=== PATIENT | male | born 1995 | race Caucasian/White ===

== ENCOUNTER 2017-09-05 17:18 | Emergency (ER) | payer BC ==
--- NOTE | 2017-09-05 17:32 | ER Report ---
History and Physical Time Seen By MD: 17:32 Hx. of Stated Complaint: Per patient's father he is acting suicidal and throwing things through the window at home, Patient states he took about 7 pills of his clonidine to help him sleep HPI/ROS CHIEF COMPLAINT: Suicidal ideation HISTORY OF PRESENT ILLNESS: 21-year-old male patient presents to emergency room with complaint of suicidal ideation. Patient states that he had an argument with his father this afternoon. He states that his father told him that he didn' t expect much out of him. He states that hurt his feelings quite a bit. He states that he does have some mental problems mostly with a frontal lobe dysfunction, patient also has difficulty with expressing himself. Patient denies having any nausea or vomiting. Patient states that he did tell his father that he just wanted to and that he wanted his father to kill him. Patient states that was not what he intended to say. He states he does not have any plans. He states he has been suicidal in the past but was never able to formulate a plan. He states that he did take 7 clonidine to help with sleep. He states that he is done in the past and knows that there is not any harm in doing that. He states that he is prescribed one clonidine at bedtime. REVIEW OF SYSTEMS: Respiratory: No cough, no dyspnea. Cardiovascular: No chest pain, no palpitations. Gastrointestinal: No vomiting, no abdominal pain. Musculoskeletal: No back pain. Allergies: Coded Allergies: No Known Drug Allergies (Unverified , 09/05/17) Home Meds Reported Medications Alprazolam (ALPRAZOLAM) 1 Mg Tablet, 1 TAB PO TID Y for ANXIETY, #3 TAB 09/05/17 Fluoxetine Hcl (FLUOXETINE HCL) 20 Mg Capsule, 20 MG PO QDAY, CAPSULE 09/05/17 Clonidine HCl (Clonidine HCl ER) 0.1 Mg Tab.er.12h, 1 TAB PO QHS 09/05/17 Olanzapine (OLANZAPINE) 2.5 Mg Tablet, 2.5 MG PO QDAY 09/05/17 Past Medical/Surgical History Patient has a past medical history of IBS, marijuana use, alcohol use, suicide attempt. Patient has a surgical history of bladder expansion. Reviewed Nurses Notes: Yes Hx Substance Use Disorder: Yes (sometimes marijauna) Hx Alcohol Use: Yes (twice a week) Constitutional Vital Sign - Last 24 Hours 09/05/17 09/05/17 09/05/17 09/05/17 17:24 17:30 17:45 18:00 Temp 98.6 Pulse 97 89 80 78 Resp 16 B/P (MAP) 142/91 Pulse Ox 96 95 96 96 O2 Delivery Room Air 09/05/17 09/05/17 09/05/17 18:30 19:00 19:39 Pulse 77 70 60 Resp 16 B/P (MAP) 106/64 (78) Pulse Ox 96 95 92 O2 Delivery Room Air Physical Exam General Appearance: The patient is alert, has no immediate need for airway protection and no current signs of toxicity. ENT: Tympanic membranes are pearly-la, auditory canals are patent, mucous membranes are moist. Respiratory: Chest is non tender, lungs are clear to auscultation. Cardiac: regular rate and rhythm Gastrointestinal: Abdomen is soft and non tender, no masses, bowel sounds normal. Musculoskeletal: Neck: Neck is supple and non tender. Extremities have full range of motion and are non tender. Skin: No rashes or lesions. Psych: Patient is unable to maintain eye contact during the interview. Patient does have very halting speech. DIFFERENTIAL DIAGNOSIS: After history and physical exam differential diagnosis was considered for depression, suicidal ideation. Medical Decision Making Data Points Result Diagram: 09/05/17180809/05/171808 Laboratory Hematology Test 09/05/17 18:09 09/05/17 19:03 Red Blood Count 5.37 M/uL (4.00-5.60) Mean Corpuscular Volume 91.0 fL (80.0-96.0) Mean Corpuscular Hemoglobin 31.0 pg (26.0-33.0) Mean Corpuscular Hemoglobin Concent 34.1 g/dL (32.0-36.0) Red Cell Distribution Width 13.1 % (11.5-14.5) Mean Platelet Volume 8.2 fL (7.2-11.1) Neutrophils (%) (Auto) 69.1 % (39.4-72.5) Lymphocytes (%) (Auto) 19.0 % (17.6-49.6) Monocytes (%) (Auto) 8.1 % (4.1-12.4) Eosinophils (%) (Auto) 3.2 % (0.4-6.7) Basophils (%) (Auto) 0.6 % (0.3-1.4) Nucleated RBC Relative Count (auto) 0.0 /100WBC Neutrophils # (Auto) 4.8 K/uL (2.0-7.4) Lymphocytes # (Auto) 1.3 K/uL (1.3-3.6) Monocytes # (Auto) 0.6 K/uL (0.3-1.0) Eosinophils # (Auto) 0.2 K/uL (0.0-0.5) Basophils # (Auto) 0.0 K/uL (0.0-0.1) Nucleated RBC Absolute Count (auto) 0.00 K/uL Sodium Level 140 mmol/L (137-145) Potassium Level 3.9 mmol/L (3.5-5.0) Chloride Level 102 mmol/L (98-107) Carbon Dioxide Level 23 mmol/L (22-30) Blood Urea Nitrogen 12 mg/dl (9-21) Creatinine 0.90 mg/dl (0.66-1.25) Glomerular Filtration Rate Calc > 60.0 Random Glucose 86 mg/dl (75-110) Calcium Level 9.3 mg/dl (8.4-10.2) Magnesium Level 1.7 mg/dl (1.7-2.2) Total Bilirubin 0.5 mg/dl (0.2-1.3) Aspartate Amino Transf (AST/SGOT) 55 U/L (0-35) Alanine Aminotransferase (ALT/SGPT) 92 U/L (0-56) Alkaline Phosphatase 120 U/L (0-126) Total Protein 7.9 gm/dl (6.3-8.2) Albumin 4.4 g/dl (3.5-5.0) Salicylates Level < 10 mg/L Salicylate Last Dose Date unk Acetaminophen Level < 10 ug/ml Serum Alcohol < 10 mg/dl Urine Color Yellow Urine Clarity Clear Urine pH 7.0 pH (4.8-9.5) Urine Specific [place] 1.008 Urine Protein Negative mg/dL (NEGATIVE) Urine Glucose (UA) Negative mg/dL (NEGATIVE) Urine Ketones Negative mg/dL (NEGATIVE) Urine Blood Negative (NEGATIVE) Urine Nitrite Negative (NEGATIVE) Urine Bilirubin Negative (NEGATIVE) Urine Urobilinogen Negative mg/dL (0.2-1.9) Urine Leukocyte Esterase Negative (NEGATIVE) Urine RBC <1 /HPF (0-2/HPF) Urine WBC <1 /HPF (0-5/HPF) Urine Squamous Epithelial Cells Few /LPF (</=FEW) Urine Bacteria Negative /HPF (NONE-FEW) Urine Hyaline Casts Few /LPF (NONE-FEW) Urine Mucus Few /HPF (NONE-FEW) Urine Opiates Screen Negative Urine Barbiturates Screen Negative Ur Tricyclic Antidepressants Screen Negative Urine Phencyclidine Screen Negative Urine Amphetamines Screen Negative Urine Benzodiazepines Screen Negative Urine Cocaine Screen Negative Urine Cannabinoids Screen Positive Chemistry Test 09/05/17 18:09 09/05/17 19:03 White Blood Count 6.9 k/uL (4.5-11.0) Red Blood Count 5.37 M/uL (4.00-5.60) Hemoglobin 16.7 g/dL (14.0-18.0) Hematocrit 48.9 % (42.0-52.0) Mean Corpuscular Volume 91.0 fL (80.0-96.0) Mean Corpuscular Hemoglobin 31.0 pg (26.0-33.0) Mean Corpuscular Hemoglobin Concent 34.1 g/dL (32.0-36.0) Red Cell Distribution Width 13.1 % (11.5-14.5) Platelet Count 188 K/uL (150-450) Mean Platelet Volume 8.2 fL (7.2-11.1) Neutrophils (%) (Auto) 69.1 % (39.4-72.5) Lymphocytes (%) (Auto) 19.0 % (17.6-49.6) Monocytes (%) (Auto) 8.1 % (4.1-12.4) Eosinophils (%) (Auto) 3.2 % (0.4-6.7) Basophils (%) (Auto) 0.6 % (0.3-1.4) Nucleated RBC Relative Count (auto) 0.0 /100WBC Neutrophils # (Auto) 4.8 K/uL (2.0-7.4) Lymphocytes # (Auto) 1.3 K/uL (1.3-3.6) Monocytes # (Auto) 0.6 K/uL (0.3-1.0) Eosinophils # (Auto) 0.2 K/uL (0.0-0.5) Basophils # (Auto) 0.0 K/uL (0.0-0.1) Nucleated RBC Absolute Count (auto) 0.00 K/uL Glomerular Filtration Rate Calc > 60.0 Calcium Level 9.3 mg/dl (8.4-10.2) Magnesium Level 1.7 mg/dl (1.7-2.2) Total Bilirubin 0.5 mg/dl (0.2-1.3) Aspartate Amino Transf (AST/SGOT) 55 U/L (0-35) Alanine Aminotransferase (ALT/SGPT) 92 U/L (0-56) Alkaline Phosphatase 120 U/L (0-126) Total Protein 7.9 gm/dl (6.3-8.2) Albumin 4.4 g/dl (3.5-5.0) Salicylates Level < 10 mg/L Salicylate Last Dose Date unk Acetaminophen Level < 10 ug/ml Serum Alcohol < 10 mg/dl Urine Color Yellow Urine Clarity Clear Urine pH 7.0 pH (4.8-9.5) Urine Specific [place] 1.008 Urine Protein Negative mg/dL (NEGATIVE) Urine Glucose (UA) Negative mg/dL (NEGATIVE) Urine Ketones Negative mg/dL (NEGATIVE) Urine Blood Negative (NEGATIVE) Urine Nitrite Negative (NEGATIVE) Urine Bilirubin Negative (NEGATIVE) Urine Urobilinogen Negative mg/dL (0.2-1.9) Urine Leukocyte Esterase Negative (NEGATIVE) Urine RBC <1 /HPF (0-2/HPF) Urine WBC <1 /HPF (0-5/HPF) Urine Squamous Epithelial Cells Few /LPF (</=FEW) Urine Bacteria Negative /HPF (NONE-FEW) Urine Hyaline Casts Few /LPF (NONE-FEW) Urine Mucus Few /HPF (NONE-FEW) Urine Opiates Screen Negative Urine Barbiturates Screen Negative Ur Tricyclic Antidepressants Screen Negative Urine Phencyclidine Screen Negative Urine Amphetamines Screen Negative Urine Benzodiazepines Screen Negative Urine Cocaine Screen Negative Urine Cannabinoids Screen Positive Toxicology Test 09/05/17 18:09 09/05/17 19:03 Salicylates Level < 10 mg/L Salicylate Last Dose Date unk Acetaminophen Level < 10 ug/ml Serum Alcohol < 10 mg/dl Urine Opiates Screen Negative Urine Barbiturates Screen Negative Ur Tricyclic Antidepressants Screen Negative Urine Phencyclidine Screen Negative Urine Amphetamines Screen Negative Urine Benzodiazepines Screen Negative Urine Cocaine Screen Negative Urine Cannabinoids Screen Positive Urinalysis Test 09/05/17 19:03 Urine Color Yellow Urine Clarity Clear Urine pH 7.0 pH (4.8-9.5) Urine Specific [place] 1.008 Urine Protein Negative mg/dL (NEGATIVE) Urine Glucose (UA) Negative mg/dL (NEGATIVE) Urine Ketones Negative mg/dL (NEGATIVE) Urine Blood Negative (NEGATIVE) Urine Nitrite Negative (NEGATIVE) Urine Bilirubin Negative (NEGATIVE) Urine Urobilinogen Negative mg/dL (0.2-1.9) Urine Leukocyte Esterase Negative (NEGATIVE) Urine RBC <1 /HPF (0-2/HPF) Urine WBC <1 /HPF (0-5/HPF) Urine Squamous Epithelial Cells Few /LPF (</=FEW) Urine Bacteria Negative /HPF (NONE-FEW) Urine Hyaline Casts Few /LPF (NONE-FEW) Urine Mucus Few /HPF (NONE-FEW) ED Course/Re-evaluation ED Course Patient was admitted to exam room, history and physical were obtained. Differential diagnoses were considered. On examination patient does seem impaired swelling, is not able to maintain eye contact. Speech is very halting. Patient did state that he would like to be admitted to a full health as he is not having suicidal thoughts this time but did state that he would like to be earlier this evening. The lab work for a behavioral health admission was done. Labs were unremarkable except the patient did have a positive drug screen for cannabis. I discussed the case with Daniela Farmer, psychological help this practitioner. She did agree to accept the patient for admission to behavioral health unit. Decision to Disposition Date: Sep 05, 2017 Decision to Disposition Time: 19:31 Depart Departure Latest Vital Signs Vital Signs Date Time Temp Pulse Resp B/P (MAP) Pulse Ox O2 Delivery O2 Flow Rate FiO2 09/05/17 19:39 60 16 106/64 (78) 92 Room Air 09/05/17 17:24 98.6 Impression: Primary Impression: Depression Additional Impression: Suicidal thoughts Condition: Condition Unchanged Disposition: XFER TO [facility] Problem Qualifiers Primary Impression: Depression Depression Type: major depressive disorder Major depression recurrence: recurrent Active/Remission status: currently active Major depression episode severity: moderate Qualified Codes: F33.1 - Major depressive disorder, recurrent, moderate HOLLY SOSA Sep 05, 2017 17:32
[2017-09-05] MEDS ORDERED: FLUO-177 PO (17:33)
[2017-09-05] MEDS ORDERED: CLON0.1T14 PO (17:33)
[2017-09-05] MEDS ORDERED: OLAN2.5T3 PO (17:33)
[2017-09-05] MEDS ORDERED: ALPR-451 PO (17:33)
[2017-09-05 18:23] LABS: PLATELET COUNT, AUTOMATED 188 K/uL (150-450)
[2017-09-05 19:39] VITALS: BP 106/64
[2017-09-06] MEDS ORDERED: MINO75CA2 PO (11:34)
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
== END 2017-09-05 19:50 ==
LOC: ER 17:35
DX: F33.1 Major depressive disorder, recurrent, moderate (principal); R45.851 Suicidal ideations; F43.24 Adjustment disorder with disturbance of conduct; F41.1 Generalized anxiety disorder; F89 Unspecified disorder of psychological development; Z60.4 Social exclusion and rejection; F12.10 Cannabis abuse, uncomplicated
CPT/HCPCS: 36415; 80305; 80320; 80329; 81001; 82040; 82247; 82310; 82374; 82435; 82565; 82947; 83735; 84075; 84132; 84155; 84295; 84443; 84450; 84460; 84520; 85025; 99285

== ENCOUNTER 2017-09-05 19:34 | Inpatient (IN) | payer BC ==
[~2017-09-05] VITALS: Ht 175.3 cm; Wt 79.4 kg
[~2017-09-05 19:34] MED LIST: ALPR-451 PO; CLON0.1T14 PO; FLUO-177 PO; OLAN2.5T3 PO
[2017-09-05] MEDS ORDERED: ACETAMINOPHEN 325 MG TAB PO PRN (20:05)
[2017-09-05] MEDS ORDERED: MAG HYD/AL HYD/SIMETH 30ML UDC PO PRN (20:20)
[2017-09-05 20:26] VITALS: BP 90/60
[2017-09-05 21:49] VITALS: BP_SYST 102; BP_SYST 105; BP_DIAS 66
[2017-09-05] MEDS: OLANZapine 5 MG TAB PO SCH (22:06)
[2017-09-06 00:03] VITALS: BP 101/57
[2017-09-06] MEDS ORDERED: MULTIVITAMINS TAB PO SCH (09:00)
[2017-09-06] MEDS ORDERED: FLUoxetine HCL 20 MG CAP PO SCH (09:00)
[2017-09-06] MEDS: FLUoxetine HCL 20 MG CAP PO SCH (10:57)
[2017-09-06] MEDS ORDERED: MINO75CA2 PO (11:34)
[2017-09-06] MEDS ORDERED: ALPRAZolam 0.5 MG TAB PO PRN (12:00)
[2017-09-06 13:44] VITALS: BP 119/69
[2017-09-06] MEDS ORDERED: cloNIDine HCL 0.1 MG TAB PO SCH (21:00)
[2017-09-06] MEDS: OLANZapine 5 MG TAB PO SCH (21:06)
[2017-09-06] MEDS: MINOCYCLINE HCL 100 MG CAP PO SCH (21:06)
[2017-09-06 21:21] VITALS: BP 126/84
[2017-09-07 05:45] VITALS: BP 104/59
[2017-09-07] MEDS: MINOCYCLINE HCL 100 MG CAP PO SCH (08:04)
[2017-09-07] MEDS: FLUoxetine HCL 20 MG CAP PO SCH (08:05)
[2017-09-07] MEDS ORDERED: OMEGA-3 500 MG CAP PO SCH (09:00)
[2017-09-07] MEDS ORDERED: CHOLECALCIFEROL 1000 UNIT TAB PO SCH (09:00)
[2017-09-07] MEDS ORDERED: FLUoxetine HCL 20 MG CAP PO SCH (09:00)
[2017-09-07] MEDS ORDERED: MULT-1379 PO (09:35)
[2017-09-07] MEDS ORDERED: OMEG-23 PO (09:54)
[2017-09-07] MEDS ORDERED: MULT1CAP59 PO (09:55)
[2017-09-07] MEDS ORDERED: CHOL10005 PO (09:56)
[2017-09-07] MEDS ORDERED: MULTIVITAMINS TAB PO SCH (12:00)
--- NOTE | 2017-09-08 22:50 | DISCHARGE SUMMARY ---
Patient was seen on September 07, 2017 at approximately 0900 hours concerning this dictation. FINAL DIAGNOSES PER DSM-V Adjust disorder with disturbance of conduct. Generalized anxiety disorder. Rule out cannabis use disorder. Supportive family. REASON FOR ADMISSION This is a very pleasant 21-year-old male who was admitted after throwing a fit of anger after an argument with family members and throwing a bar-b-que grill through a window at his parents' home, with which he continues to life. Patient has a history of some neurodevelopmental disorder unspecified that may have resulted in some executive functioning delays. Patient of average IQ. Patient continues to live and work with his family. Patient becoming irritated in some ways that he could not sleep, apparently took more clonidine that he is prescribed. Please see H and P for full details. Patient given much education on the hazards of this. Patient denying that this was a suicide attempt. Met with patient's family members who had no reservations about patient returning home. Patient was kept on current medication regimen, encouraged not to use cannabis, and instead practice good sleep hygiene and continue to search for employment to work toward getting back on his own rather than regress psychologically living with his parents, not working and not hanging out with this own peer group. Any brief suicidal ideation the patient had quickly resolved. Patient very cooperative and took an active role in his treatment. PHYSICAL EXAMINATION GENERAL: Please see emergency room note. Notable for a 21-year-old male in good physical health. No medical complaints. VITAL SIGNS: At the time of admission, temperature 98.6, pulse 97, respiratory rate 16, blood pressure 142/91, pulse oximetry 96 on room air. Vital signs at the time of discharge: Temperature 97.9, pulse 52, blood pressure 104/59, pulse oximetry 97 on room air. LABORATORY DATA Vitamin D 25-hydroxy 28 and low. Free T4 0.81, free T3 3.3. TSH 4.81 and elevated at the time of admission. CBC unremarkable. CMP notable for AST 55, ALT 92, both elevated. Urinalysis unremarkable. Toxicology screen positive for cannabinoids, negative for other substances of abuse with a nondetectable serum alcohol level. MENTAL STATUS EXAMINATION AT THE TIME OF DISCHARGE GENERAL APPEARANCE, BEHAVIOR AND ATTITUDE: This is a cooperative, well-groomed 21-year-old male making improved eye contact. Patient appeared staged age, interacting well with parents and the rest of treatment team present at the time of discharge. No psychomotor agitation or retardation. No bizarre mannerisms or tics. SPEECH: Considered baseline and any deficits were likely related to neurodevelopmental disorder unspecified. MOOD: Described as improved. AFFECT: Minimally constricted, but mood congruent overall. THOUGHT PROCESSES: Logical, goal directed. Patient stating, "I would like to go home." No loose associations or flight of ideas. THOUGHT CONTENT: Free of auditory or visual hallucinations, ideas of reference , thought broadcastings, delusions, obsessions, compulsions. Patient adamantly denying suicidal or homicidal ideation. SENSORIUM: Clear. COGNITION: Alert and oriented to person, place, time and situation. MEMORY: Immediate, recent and remote estimated intact. INTELLIGENCE: Average based on interview. INSIGHT AND JUDGMENT: Considered grossly intact in the absence of illicit substance use and appropriate for ongoing outpatient management. RESULTS OF TESTING IMAGING: None. LABORATORY DATA: See above. CONSULTATIONS: None. TREATMENT Patient received medications, participated in individual and group therapy. HOSPITAL COURSE Patient remained on current outpatient medication regimen. Patient was encouraged to use medications as prescribed and cautioned about the overuse of clonidine for sleep. Patient stated he would like to remain on current regimen , agreed to take medications prescribed and abstain from cannabis in the future. CONDITION OF PATIENT ON DISCHARGE Stable. Considered minimal risk to himself or others and appropriate for outpatient management. DISPOSITION Patient was discharged to the care of his parents. He would follow up with outpatient services, take medications as prescribed. Given the crisis line should symptoms return, and would stop the use of cannabis. Patient would remain on Catapres 0.1 mg at bedtime, Minocin 100 mg twice daily for acne, Prozac 40 mg daily, multivitamin with minerals once a day, Xanax 1 mg daily p.r.n. for extreme anxiety as prescribed by outpatient provider and Zyprexa 2.5 mg p.o. at bedtime. No scripts were written. The patient had medications at home. Risks, benefits and alternatives of the above discharge plan were discussed. Informed consent was given to proceed with above discharge plan by this competent patient and patient's parents present at the time of discharge. JAMAR
== END 2017-09-07 10:07 | disposition home or self-care (01) | DRG 882 ==
LOC: BHS 19:34
PROVIDERS: ADMIT Nurse Practitioner Psychiatric/Mental Health; ATTEND Nurse Practitioner Psychiatric/Mental Health
DX: F43.24 Adjustment disorder with disturbance of conduct (principal); R45.851 Suicidal ideations; F41.1 Generalized anxiety disorder; F12.90 Cannabis use, unspecified, uncomplicated; F89 Unspecified disorder of psychological development; Z81.0 Family history of intellectual disabilities
CPT/HCPCS: 82306; 84439; 84481